=== PATIENT | male | born 1965 | race Hispanic/Latino ===

== ENCOUNTER 2017-02-25 11:00 | Day surgery (SDC) | payer OTHER ==
[~2017-02-25 11:00] MED LIST: KEFLEX500 M1 PO; NAPROSYN 375MG375 MG PO
--- NOTE | 2017-02-25 14:07 | Operative Note ---
Surgeon/Diagnoses Surgeon/[employer] Administrator(s) Date of procedure: 02/25/17 Surgeon: MD Pasha Acuña Diagnoses Pre-op diagnosis: Screening Post-op diagnosis RIGHT colon polyp Procedure Procedure Procedure: Colonoscopy with biopsy (polypectomy by means other than snare) Indications: ERIN ADAM is a 51 year-old Male with a history of need for screening colonoscopy. Findings: Bowel preparation moderate Small RIGHT colon polyp Procedure Description: After informed consent was obtained, the patient was taken to the endoscopy suite. IV sedation ensued after he was transferred to the LEFT lateral decubitus position. Digital rectal exam revealed no significant abnormality. The colonoscope was placed in position. The entire colon was evaluated. Bowel preparation was moderate with irrigation and suctioning used to improve visualization. A RIGHT colon polyp was excised way of cold biopsy forceps. No additional lesions noted. The colonoscope was carefully removed and the patient was transferred to recovery. EBL (ml): 1 Anesthesia: IV sedation with 7 mg of Versed and 100 g of fentanyl Complications: No immediate Specimens: RIGHT colon polyp Disposition Disposition: Stable to recovery from where he will be discharged home. He will follow up in one week. Repeat colonoscopy is pending pathology but will likely be between 2-3 years secondary to moderate bowel preparation. at [id number]
[2017-02-25 15:33] VITALS: BP 136/84
== END 2017-02-25 14:20 | disposition home or self-care (01) ==
LOC: SDC 11:00
PROVIDERS: Surgery
PROC: 0DBF8ZX Excision of Right Large Intestine, Via Natural or Artificial Opening Endoscopic, Diagnostic (ICD-10-PCS; principal; 2017-02-25 11:30)
DX: Z12.11 Encounter for screening for malignant neoplasm of colon (principal); K63.5 Polyp of colon